=== PATIENT | male | born 1950 | race Asian ===

== ENCOUNTER 2024-04-09 01:15 | Emergency (ER) | payer OTHER, BC ==
[2024-04-09 01:30] VITALS: BP 156/94; TEMP 98.1; BMI 29.0
[2024-04-09] MEDS: VITAMINS A AND D TOPICAL OINTMENT TP ONE (03:06)
[2024-04-09 03:09] VITALS: PULSE 82; RESP 19
== END 2024-04-09 03:08 | disposition home or self-care (01) ==
LOC: JER 01:15
DX: K62.89 Other specified diseases of anus and rectum (principal); L29.0 Pruritus ani
CPT/HCPCS: 99283-25